=== PATIENT | female | born 1995 | race Caucasian/White ===

== ENCOUNTER 2018-04-06 19:15 | Inpatient (IN) | payer OTHER ==
[2018-04-06] MEDS: DEXTROSE 5%-LACTATED RINGERS 1,000 ML IV SCH (19:45)
[2018-04-06 20:12] VITALS: BMI 29.2
[2018-04-06] MEDS ORDERED: DINOPROSTONE 10 MG VAGINAL SUPPOSITORY VG ONE (20:15)
[2018-04-06] MEDS ORDERED: TUBERCULIN PPD 5 TU/0.1ML SYRINGE (IN PATIENT USE ONLY) ID ONE (20:30)
[2018-04-06 20:46] LABS: BASO % 0.3 % (0-2.0); EOS % 0.7 % (0-4.5); HEMOGLOBIN 12.7 GM/dL (10.7-15.3); LYMPH % 22.6 % (8-40); MCHC 32.7 g/dl (32.0-36.0); MEAN CELL VOLUME 82.7 fl (80-96); MEAN PLT VOLUME 10.2 fl (7.5-11.1); MONO % 4.8 % (3.8-10.2); NEUT % 71.6 % (42.8-82.8); PLATELET COUNT 171 K/MM3 (134-434); RBC 4.71 M/mm3 (3.60-5.2); RDW 17.2 % (11.6-15.6); WHITE BLOOD COUNT 9.9 K/mm3 (4.0-10.0)
[2018-04-06 21:04] LABS: INR 0.89 (0.83-1.09); PROTHROMBIN TIME (PATIENT) 10.5 SEC (9.7-13.0)
[2018-04-06 21:07] LABS: ACTIVATED PTT 27.6 SECONDS (25.2-36.5)
[2018-04-06] MEDS ORDERED: OXYTOCIN 30 UNITS in 0.9% NS 30 UNIT/500 ML INFUS.BAG IVPB ONE (21:09)
[2018-04-06] MEDS ORDERED: OXYTOCIN 30 UNITS in 0.9% NS 30 UNIT/500 ML INFUS.BAG IVPB SCH (21:15)
--- NOTE | 2018-04-06 21:16 | HP ---
Past Medical History - Primary Care Physician PCP:: Janusz Marlow - Admission Chief Complaint: 22yo P0 with at EGA 37w2d admitted for labor induction due to IUGR, as per [facility] recommendations. History of Present Illness: Followed by M due to IUGR. Pt was seen by Dr. Edwards on 03/30/18 and was advised induction at 37wks. Pt presents today with spontaneous regular contractions q 4-5 min but she does not feel them. Vaginal GBS (-) Normal BP now and during care History Source: Patient, Medical Record Limitations to Obtaining History: No Limitations - Past Medical History [employer]: No: Alzheimer's, CVA, Dementia, Migraine, Multiple Sclerosis, Peripheral Neuropathy, Parkinson's, Seizure, Syncope, TIA, Vertigo, Other Cardiovascular: No: AFIB, Aneurysm, Aortic Insufficiency, Aortic Stenosis, CAD, CHF, Deep Vein Thrombosis, HTN, Hyperlipdemia, GA, Mitral Insufficiency, Mitral Stenosis, Murmur, Pulmonary Hypertension, Other Pulmonary: No: Asthma, Bronchitis, Cancer, COPD, O2 Dependent, Pneumonia, Previously Intubated, Pulmonary Embolus, Pulmonary Fibrosis, Sleep Apnea, Other Gastrointestinal: No: Ascites, Cancer, Constipation, Crohn's Disease, Diverticulitis, Diverticulosis, Esophageal Varices, Gastritis, GERD, GI Bleed, Hemorrhoids, Hiatal Hernia, Inflamatory Bowel Disease, Irritable Bowel Disease, Pancreatitis, Peptic Ulcer Disease, Ulcerative Colitis, Other Hepatobiliary: No: Cirrhosis, Cholelithiasis, Cholecystitis, Choledocholithiasis , Hepatitis A, Hepatitis B, Hepatitis C, Other Renal/: No: Renal Failure, Renal Inusuff, BPH, Cancer, Hematuria, Hemodialysis , Neurogenic Bladder, Renal Calculi, UTI, Other ...: 1 ...Para: 0 ...Term: 0 ...: 0 ...Spon : 0 ...Induced : 0 ...Multiple Gestation: 0 ...LMP: 07/20/17 ... Weeks Gestation by Dates: 37.2 ...EDC by Dates: 04/26/18 ...EDC by Sono: 04/26/18 Heme/Onc: No: Anemia, B12 Deficiency, Bleeding Disorder, Cancer, Current Chemotherapy, Current Radiation Therapy, Hemochromatosis, Hypercoaguable State, Myeloproliferative Synd, Sickle Cell Disease, Sickle Cell Trait, Thrombocytopenia, Other Infectious Disease: No: AIDS, C-Diff, Herpes Zoster, HIV, MRSA, STD's, Tuberculosis, VREF, Other Psych: No: Addictions, Anxiety, Bipolar, Depression, Panic, Psychosis, Schizophrenia, Other Musculoskeletal: No: Bursitis, Chronic low back pain, Hemiparesis, Hemiplegia, Osteoarthritis, Paraplegia, Other Rheumatology: No: Fibromyalgia, Gout, Lupus, Rheumatoid Arthritis, Sarcoidosis, Vasculitis, Other ENT: No: Allergic Rhinitis, Sinusitis, Other Endocrine: No: Heriberto's Disease, Hingham's Disease, Diabetes Insipidus, Diabetes Mellitus, Hyperparathyroidism, Hyperthyroidism, Hypothyroidism, Osteopenia, SIADH, Other Dermatology: No: Basal Cell, Cellulitis, Eczema, Melanoma, Psoriasis, Squamous Cell, Other - Past Surgical History Past Surgical History: Yes: None Hx Myomectomy: No Hx Transabdominal Cerclage: No - Smoking History Smoking history: Never smoked Have you smoked in the past 12 months: No - Alcohol/Substance Use Hx Alcohol Use: No History of Substance Use: reports: None - Social History Usual Living Arrangement: Yes: Alone ADL: Independent History of Recent Travel: No Home Medications - Allergies Allergies/Adverse Reactions: Allergies Allergy/AdvReac Type Severity Reaction Status Date / Time No Known Allergies Allergy Verified 04/06/18 19:45 - Home Medications Home Medications: Ambulatory Orders One Tablet 1 tablet PO DAILY 04/06/18 Family Disease History - Family Disease History Family History: Denies Review of Systems - Review of Systems Constitutional: reports: No Symptoms Eyes: reports: No Symptoms HENT: reports: No Symptoms Neck: reports: No Symptoms Cardiovascular: reports: No Symptoms Respiratory: reports: No Symptoms Gastrointestinal: reports: No Symptoms Genitourinary: reports: No Symptoms Breasts: reports: No Symptoms Reported Musculoskeletal: reports: No Symptoms Integumentary: reports: No Symptoms Neurological: reports: No Symptoms Endocrine: reports: No Symptoms Hematology/Lymphatic: reports: No Symptoms Psychiatric: reports: No Symptoms Pain Intensity: 1 Physical Exam - Maternity Vital Signs: Vital Signs Temperature 99.0 F 04/06/18 20:00 Pulse Rate 76 04/06/18 20:00 Respiratory Rate 20 04/06/18 20:00 Blood Pressure 127/62 04/06/18 20:00 O2 Sat by Pulse Oximetry (%) Constitutional: Yes: Well Nourished, No Distress, Calm Eyes: Yes: WNL, Conjunctiva Clear HENT: Yes: WNL, Atraumatic, Normocephalic Neck: Yes: WNL, Supple, Trachea Midline Cardiovascular: Yes: WNL, Regular Rate and Rhythm - Abdominal Exam/OB Fundal Height: 36 Number of Fetuses: Single Presentation: Vertex Contractions: Yes Regularity: Regular Intensity: Unaware Monitor Mode: External Heart Rate (range): 130 Heart Rate Location: Midline Category: I Accelerations: Non-Uniform Decelerations: None - Vaginal Exam/OB Vaginal Bleediing: No Speculum Exam: No Dilatation (cm): 1 Effacement (%): 50 Amniotic Membrane Status: Intact Station: -3 - Physical Exam Musculoskeletal: Yes: WNL Extremities: Yes: WNL Edema: No Integumentary: Yes: WNL Deep Tendon Reflex Grade: Normal +2 ...Motor Strength: WNL Psychiatric: Yes: WNL, Alert, Oriented - Labs Lab Results: CBC, BMP 04/06/18 19:40 Hemorrhage Risk Assessment - Risk Factors Medium Risk Factors: Yes: None High Risk Factors: Yes: None Risk Score: 1 Risk Level: Medium Risk Imaging - Results Ultrasound: Report Reviewed Assessment/Plan 22yo P0 with at EGA 37w2d admitted for labor induction due to IUGR, as per [facility] recommendations. The pt has regular contractions q 4 min but does not feel them. Plan to augment contractions with pitocin. Fetus with Category I tracing. Adequate gynecoid pelvimetry on exam. We had long discussion re: risks , benefits, and alternatives of labor augmentation and pitocin. I explained the options of expectant management awaiting progress to spontaneous labor, induction of labor, and elective section. The risks of uterine tachysystole, distress, uterine rupture, need for emergency C/S, hemorrhage, infection, scarring, etc. were discussed. We also discussed the risks of meconium aspiration, shoulder dystocia, and anesthesia options. The pt requested to proceed with augmentation using pitocin.
[2018-04-06 21:17] LABS: ANION GAP 7 MMOL/L (8-16); BLOOD UREA NITROGEN 10 mg/dL (7-18); CALCIUM 9.1 mg/dL (8.5-10.1); CHLORIDE 109 mmol/L (98-107); CO2 22 mmol/L (21-32); CREATININE 0.4 mg/dL (0.55-1.3); GLUCOSE,RANDOM 136 mg/dL (74-106); POTASSIUM 3.8 mmol/L (3.5-5.1); SODIUM 138 mmol/L (136-145)
--- NOTE | 2018-04-06 21:26 | PN ---
Progress Note (short form) - Note Progress Note: Pt was noted to have a bradycardia x 4 min a few minutes after pitocin was started. The pitocin was tirend off. The pt's position was changed and O2 was given by mask. The bradycardia resolved. Plan to monitor for now.
--- NOTE | 2018-04-07 09:44 | PN ---
Ante-Partal Exam - Subjective Subjective: Patient reports mild pain with contractions Vital Signs: Vital Signs Temperature 98.5 F 04/07/18 09:00 Pulse Rate 71 04/07/18 09:00 Respiratory Rate 18 04/07/18 09:00 Blood Pressure 119/57 L 04/07/18 09:00 O2 Sat by Pulse Oximetry (%) Bleeding: No Headache: No Visual changes: No Right upper quadrant pain: No - Contractions Contractions: Yes Regularity: Regular Intensity: Moderate Monitor Mode: External - Exam during Labor Heart Rate: 130 Variability: Moderate Category: I Monitor Accelerations: Present Monitor Decelerations: None Exam: Vaginal Dilatation (cm): 2-3 Effacement (%): 50 Amniotic Membrane Status: Ruptured Amniotic Fluid: Clear Presentation: Vertex Station: -3 - Intrapartum Hemorrhage Risk Medium Risk Factors: None High Risk Factors: None Risk Score: 0 Risk Level: Low Risk - Assessment/Plan Assessment/Plan: 22 yo P0 @ 37 wks augmentation of labor, on pitocin 1. Good cervical change, Pitocin at 8; will continue per protocol AROM performed, clear fluid 2. Category I FHT 3. GBS negtive 4. Will offer pain medication upon patient request 5. Will proceed with expectant managemetn
[2018-04-07] MEDS ORDERED: BUPIVACAINE HCL/PF 0.25% (2.5MG/ML) 10 ML VIAL ONE (11:42)
[2018-04-07] MEDS ORDERED: FENTANYL/BUPIVACAINE/NS/PF - PCEA - 50 ML DISP.SYRIN EP ONE ×2 (11:46→16:46)
[2018-04-07] MEDS: FENTANYL/BUPIVACAINE/NS/PF - PCEA - 50 ML DISP.SYRIN EP SCH (12:00)
[2018-04-07] MEDS ORDERED: NALOXONE HCL 0.4 MG/ML VIAL IVPUSH PRN (12:11)
--- NOTE | 2018-04-07 15:48 | PN ---
Ante-Partal Exam - Subjective Subjective: Patient comfortable s/p epidural Vital Signs: Vital Signs Temperature 97.4 F L 04/07/18 14:00 Pulse Rate 76 04/07/18 14:30 Respiratory Rate 18 04/07/18 14:30 Blood Pressure 110/65 04/07/18 14:30 O2 Sat by Pulse Oximetry (%) 98 04/07/18 14:30 Bleeding: No Headache: No Visual changes: No Right upper quadrant pain: No - Contractions Contractions: Yes Regularity: Regular Intensity: Unaware - Exam during Labor Heart Rate: 130 Variability: Moderate Category: II Monitor Accelerations: Present Monitor Decelerations: Variable Exam: Vaginal Dilatation (cm): 4 Effacement (%): 90 Amniotic Membrane Status: Ruptured Amniotic Fluid: Clear Presentation: Vertex Station: -2 - Intrapartum Hemorrhage Risk Medium Risk Factors: None High Risk Factors: None Risk Score: 0 Risk Level: Low Risk - Assessment/Plan Assessment/Plan: 22 yo augmentation of labor 1. Mild cervical change; will continue pitocin per protocol 2. GBS negative 3. Category II FHT, will continue to monitor 4. Pain well controlled with epidural 5. Will proceed with expectant management
--- NOTE | 2018-04-07 18:23 | PN ---
Ante-Partal Exam - Subjective Subjective: Patient has mild L sided cramping Vital Signs: Vital Signs Temperature 98.9 F 04/07/18 16:00 Pulse Rate 95 H 04/07/18 18:00 Respiratory Rate 18 04/07/18 18:00 Blood Pressure 117/54 L 04/07/18 18:00 O2 Sat by Pulse Oximetry (%) 97 04/07/18 18:00 Bleeding: Yes (scant) Headache: No Visual changes: No Right upper quadrant pain: No - Contractions Contractions: Yes Regularity: Regular Intensity: Unaware Monitor Mode: External - Exam during Labor Heart Rate: 130 Variability: Moderate Category: I Monitor Accelerations: Present Monitor Decelerations: Early Exam: Vaginal Dilatation (cm): 5 Effacement (%): 80 Amniotic Membrane Status: Ruptured Amniotic Fluid: Clear Presentation: Vertex Station: -2 - Intrapartum Hemorrhage Risk Medium Risk Factors: None High Risk Factors: None Risk Score: 0 Risk Level: Low Risk - Assessment/Plan Assessment/Plan: 22 yo augmentation of labor 1. Good cervical change, will continue pitocin per protocol 2. GBS neg 3. Category I FHT 4. Will proceed with expectant management
[2018-04-07] MEDS ORDERED: LIDOCAINE HCL 1% PRESERVATIVE FREE - 30ML VIAL ONE (20:29)
[2018-04-07] MEDS ORDERED: OXYTOCIN 20 UNITS in 0.9% NS 20 UNIT/1,000 ML INFUS.BAG IV ONE (20:29)
[2018-04-07] MEDS: OXYTOCIN 20 UNITS in 0.9% NS 20 UNIT/1,000 ML INFUS.BAG IV SCH (21:30)
[2018-04-07] MEDS ORDERED: ACETAMINOPHEN 325 MG TABLET (FP) PO PRN (21:33)
[2018-04-07] MEDS ORDERED: oxyCODONE HCL 5 MG TABLET PO PRN (21:33)
[2018-04-07] MEDS ORDERED: BISACODYL 10 MG SUPP.RECT RC PRN (21:33)
[2018-04-07] MEDS ORDERED: IBUPROFEN 600 MG TABLET (FP) PO PRN (21:33)
[2018-04-07] MEDS ORDERED: METHYLERGONOVINE MALEATE 0.2 MG/1 ML AMP IM PRN (21:33)
[2018-04-07] MEDS ORDERED: WITCH HAZEL 50% (TUCKS) 40 PAD/JAR PAD TP PRN (21:33)
[2018-04-07] MEDS ORDERED: BENZOCAINE 28 GM HEMORRHOIDAL OINTMENT TP PRN (21:33)
[2018-04-07] MEDS ORDERED: BENZOCAINE 20% 57 GM BOTTLE TP PRN (21:33)
--- NOTE | 2018-04-07 21:39 | PN ---
Delivery - Delivery Vaginal Delivery: No Problems Type of Anesthesia: Epidural Episiotomy/Laceration: Midline, 2nd degree EBL (cc): 300 Delivery, Single - Stages of Labor Date 1st Stage Initiatied: 04/07/18 Time 1st Stage Initiated: 12:00 Date 2nd Stage Initiated: 04/07/18 Time 2nd Stage Initiated: 20:30 Date of Delivery: 04/07/18 Time of Delivery: 21:10 Date Placenta Delivered: 04/07/18 Time Placenta Delivered: 21:24 Placenta: Yes: Spontaneous - Condition of Infant Infant Gender: Female Position: Left, OA - 1 Minute Total Score: 9 5 Minutes Total Score: 9 - Feeding Plan Initial Plan: Exclusive throughout hospitalization Remarks - Remarks Remarks: Patient progressed to fully dilated and at 2109 via delivered a viable female in SHABANA position, APGARs 9,9. Weight and length unknown at this time. Head delivered spontaneously followed by shoulders and body without difficulty. Left compound arm noted. with spontaneous cry and placed on mother's abdomen. Nose and mouth was bulb suctioned. Cord was clamped and cut. Perineum and vagina examined, a second laceration was noted and repaired in the usual fashion. Rectal exam revealed no sutures in rectum. Placenta was delivered spontaneously and intact. 20 units of pitocin in 1 L IVF was given. All counts correct x 2. Mother and stable in LDR. EBL 300cc.
--- NOTE | 2018-04-07 21:41 | PN ---
Progress Note (short form) - Note Progress Note: During repair of perineal laceration, I encountered a needlestick injury with a hypodermic needle. Informed patient of injury. Patient gives permission for Hepatitis testing. Incident report to follow.
[2018-04-07 22:07] LABS: VENOUS PH 7.24 (7.32-7.42); VENOUS PO2 19.4 mmHg (28-48)
--- NOTE | 2018-04-08 01:14 | PN ---
Post Progress Note - Subjective Subjective: Patient without acute complaints. Reports tolerating oral intake without nausea or vomiting. Ambulating without dizziness. Denies fevers or chills. Pain well controlled with oral pain medication. without difficulty. Passing flatus. Post Day: 1 Type of Delivery: Vital Signs: Vital Signs Temperature 99.1 F 04/08/18 00:05 Pulse Rate 85 04/08/18 00:05 Respiratory Rate 20 04/08/18 00:05 Blood Pressure 120/57 L 04/08/18 00:05 O2 Sat by Pulse Oximetry (%) 86 L 04/07/18 21:00 Breast Exam: Yes: Soft Uterus: Yes: Fundus Firm, Fundus below umbilicus Abdomen/GI: Yes: Abdomen soft, Passing flatus, Tolerating PO. No: Abdominal Distention, Tender Lochia: Yes: Serosa Lochia, amount: Moderate Extremities: Yes: Calves non-tender, Edema (trace) Perineum: Yes: Laceration Activity: Ambulating - Labs Labs: CBC WBC 9.9 K/mm3 (4.0-10.0) 04/06/18 19:40 RBC 4.71 M/mm3 (3.60-5.2) 04/06/18 19:40 Hgb 12.7 GM/dL (10.7-15.3) 04/06/18 19:40 Hct 39.0 % (32.4-45.2) 04/06/18 19:40 MCV 82.7 fl (80-96) 04/06/18 19:40 MCH 27.0 pg (25.7-33.7) 04/06/18 19:40 MCHC 32.7 g/dl (32.0-36.0) 04/06/18 19:40 RDW 17.2 % (11.6-15.6) H 04/06/18 19:40 Plt Count 171 K/MM3 (134-434) 04/06/18 19:40 MPV 10.2 fl (7.5-11.1) 04/06/18 19:40 Absolute Neuts (auto) 7.1 K/mm3 (1.5-8.0) 04/06/18 19:40 Neutrophils % 71.6 % (42.8-82.8) 04/06/18 19:40 Lymphocytes % 22.6 % (8-40) 04/06/18 19:40 Monocytes % 4.8 % (3.8-10.2) 04/06/18 19:40 Eosinophils % 0.7 % (0-4.5) 04/06/18 19:40 Basophils % 0.3 % (0-2.0) 04/06/18 19:40 Nucleated RBC % 0 % (0-0) 04/06/18 19:40 Assessment/Plan 22 yo PPD #1 s/p , afebrile, vital signs stable, doing well 1. Continue routine care. 2. Follow up AM CBC 3. Rh positive status, no rhogam indicated. 4. Encourage ambulation 5. Continue oral pain medication 6. Anticipate discharge home day #2
[2018-04-08 08:53] LABS: BASO % 0.2 % (0-2.0); EOS % 0.2 % (0-4.5); HEMATOCRIT 41.4 % (32.4-45.2); LYMPH % 14.5 % (8-40); MCHC 31.4 g/dl (32.0-36.0); MEAN CELL VOLUME 82.9 fl (80-96); MEAN PLT VOLUME 10.3 fl (7.5-11.1); MONO % 7.3 % (3.8-10.2); NEUT % 77.8 % (42.8-82.8); PLATELET COUNT 165 K/MM3 (134-434); RDW 17.4 % (11.6-15.6); WHITE BLOOD COUNT 15.3 K/mm3 (4.0-10.0)
[2018-04-08] MEDS ORDERED: SENNOSIDES/DOCUSATE COMBO (SENNA PLUS) TABLET (UD) PO PRN (22:00)
[2018-04-08] MEDS: DEXTROSE 5%-LACTATED RINGERS 1,000 ML IV SCH (22:15)
[2018-04-08] MEDS: OXYTOCIN 20 UNITS in 0.9% NS 20 UNIT/1,000 ML INFUS.BAG IV SCH (22:16)
[2018-04-08] MEDS: FENTANYL/BUPIVACAINE/NS/PF - PCEA - 50 ML DISP.SYRIN EP SCH (22:23)
--- NOTE | 2018-04-09 03:15 | DS ---
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: Vital Signs Temperature 98.6 F 04/08/18 22:00 Pulse Rate 82 04/08/18 22:00 Respiratory Rate 18 04/08/18 22:00 Blood Pressure 111/72 04/08/18 22:00 O2 Sat by Pulse Oximetry (%) 86 L 04/07/18 21:00 Constitutional: Yes: Well Nourished, No Distress, Calm Eyes: Yes: WNL, Conjunctiva Clear, EOM Intact HENT: Yes: WNL, Atraumatic, Normocephalic Neck: Yes: WNL, Supple, Trachea Midline Cardiovascular: Yes: WNL, Regular Rate and Rhythm Respiratory: Yes: WNL, Regular, CTA Bilaterally Gastrointestinal: Yes: WNL ...Rectal Exam: Yes: WNL Renal/: Yes: WNL External Genitalia: Yes: Normal Vaginal Exam: Yes: Normal ....Post : Yes: Uterus firm, Uterus non-tender, Slight lochia rubra Breast(s): Yes: WNL Musculoskeletal: Yes: WNL Extremities: Yes: WNL Edema: Yes Edema: LLE: Trace, RLE: Trace Integumentary: Yes: WNL Neurological: Yes: WNL, Alert, Oriented ...Motor Strength: WNL Psychiatric: Yes: WNL, Alert, Oriented Labs: CBC, BMP 04/08/18 07:12 04/06/18 19:40 Delivery - Delivery Vaginal Delivery: No Problems, Spontaneous Type of Anesthesia: Epidural Episiotomy/Laceration: 2nd degree EBL (cc): 400 Delivery, Single - Stages of Labor Date 1st Stage Initiatied: 04/07/18 Time 1st Stage Initiated: 12:00 Date 2nd Stage Initiated: 04/07/18 Time 2nd Stage Initiated: 20:30 Date of Delivery: 04/07/18 Time of Delivery: 21:10 Time Placenta Delivered: 21:24 Placenta: Yes: Spontaneous - 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 Present: No Gender: Female Weight: 4 lb 15 oz Position: Left, OA Total Hours ROM (Hrs/Mins): [id number] - 1 Minute Total Score: 9 5 Minutes Total Score: 9 - Feeding Plan Initial Plan: Exclusive throughout hospitalization Discharge Summary Reason For Visit: ADMIT-INDUCTION Procedures: Principal: Hospital Course: no complication Condition: Good - Instructions Diet, Activity, Other Instructions: follow up office 4 weeksregular diet, no intercourse, if fever, pain, heavy vaginal bleeding call MD Referrals: Janusz Marlow MD [Staff Physician] - Disposition: HOME - Home Medications Comprehensive Discharge Medication List: Ambulatory Orders One Tablet 1 tablet PO DAILY 04/06/18 Ibuprofen [Motrin -] 600 mg PO TID #21 tablet 04/08/18
[2018-04-09 06:05] LABS: HBsAG SCREEN Negative (Negative)
[2018-04-09 08:36] VITALS: BP 108/62; PULSE 70; TEMP 97.9
--- NOTE | 2018-04-14 14:03 | PATH ---
Surgical Pathology Report Patient Name: DEWEY COFFEY [facility]. Rec. 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 Specimen(s) Received PLACENTA Clinical History , 37.1 weeks gestation, IUGR Final Diagnosis PLACENTA, DELIVERY: 356 G THIRD TRIMESTER PLACENTA WITH TRIVASCULAR UMBILICAL CORD AND UNREMARKABLE PLACENTAL MEMBRANES. Electronically Signed Christal Wilkerson M.D. Gross Description The specimen is received fresh labeled placenta and is a 356 gram, 17.0 x 14.8 x 2.7 cm. placenta with attached membranes and umbilical cord. The attached membranes are stewart, translucent with focal opacities and insert marginally. The umbilical cord measures 21 cm. in length and averages 0.7 cm. in diameter. The cord inserts eccentrically, 4 cm. to the nearest margin. No true knots or strictures are identified. Cut surface of the umbilical cord reveals 3 vessels. The surface is cordoba-blue with minimal fibrin deposition and appropriate caliber vessels. The maternal surface is red-brown with focal defects. Sectioning reveals red-brown, spongy parenchyma. No lesions are identified. Cold Header sections are submitted in three cassettes as follows: 1- membrane rolls and umbilical cord; 2-3- full thickness sections of placenta. 04/13/2018 saudi04/13/2018
== END 2018-04-09 11:45 | disposition home or self-care (01) | DRG 560 ==
LOC: JLDR 19:15 → J3W 04-08 00:05
PROVIDERS: ADMIT Obstetrics & Gynecology; ATTEND Obstetrics & Gynecology
PROC: 0KQM0ZZ Repair Perineum Muscle, Open Approach (ICD-10-PCS; 2018-04-06)
PROC: 10E0XZZ Delivery of Products of Conception, External Approach (ICD-10-PCS; principal; 2018-04-07)
DX: O36.5930 Maternal care for other known or suspected poor fetal growth, third trimester, not applicable or unspecified (principal); O32.6XX0 Maternal care for compound presentation, not applicable or unspecified; O70.1 Second degree perineal laceration during delivery; Z3A.37 37 weeks gestation of pregnancy; Z37.0 Single live birth
CPT/HCPCS: 36415; 59409; 80048; 82803; 85025; 85610; 85730; 86593; 86803; 86850; 86900; 86901; 87340; 87389; 88307-TC